=== PATIENT | female | born 1940 | race Caucasian/White ===

== ENCOUNTER 2018-06-01 17:51 | Inpatient (IN) | payer OTHER, MEDICARE ==
[2018-06-01 18:48] LABS: PLATELET COUNT 189 10^3/uL (150-400)
--- NOTE | 2018-06-01 19:18 | EDPHY ---
H & P Stated Complaint: cough Time Seen by Provider: 06/01/18 17:59 HPI/ROS: CHIEF COMPLAINT: Cough, shortness of breath HISTORY OF PRESENT ILLNESS: 77-year-old female with diabetes and COPD presents with cough and shortness of breath. Onset of a dry cough 1 week ago. Associated with gradually increasing shortness of breath and fever. She was seen by her primary care physician yesterday and placed on Levaquin for presumed pneumonia. She has felt worse since yesterday, with increasing shortness of breath and increasing weakness. Associated with lack of appetite. No vomiting or diarrhea. Feels that she can't take care of herself at home. Lives with her grandson, who is gone most of the day. REVIEW OF SYSTEMS: complete 10 point ROS reviewed and is negative except for the noted elements in the HPI - Personal History Current Tetanus/Diphtheria Vaccine: Yes Current Tetanus Diphtheria and Acellular Pertussis (TDAP): Yes Tetanus Vaccine Date: - Medical/Surgical History Hx Asthma: No Hx Chronic Respiratory Disease: No Hx Diabetes: Yes Hx Cardiac Disease: No Hx Renal Disease: No Hx Cirrhosis: No Hx Alcoholism: No Hx HIV/AIDS: No Hx Splenectomy or Spleen Trauma: No Other PMH: HTN, DM2, COPD, fibromyalgia, sleep apnea - Family History Significant Family History: No pertinent family hx - Social History Smoking Status: Former smoker Alcohol Use: Sober Drug Use: None - Physical Exam Exam: General Appearance: Alert, pleasant, nontoxic-appearing Eyes: Pupils equal and round, no conjunctival pallor or injection ENT, Mouth: Mucous membranes moist Neck: Normal inspection Respiratory: Lungs are clear to auscultation, no wheezing Cardiovascular: Regular rate and rhythm Gastrointestinal: Abdomen is soft and nontender Neurological: A&O, nonfocal, normal gait Skin: Warm and dry, no rash Extremities: Nontender, no pedal edema Psychiatric: Mood and affect normal Constitutional: Initial Vital Signs Temperature (C) 37 C 06/01/18 17:58 Heart Rate 100 06/01/18 17:58 Respiratory Rate 20 06/01/18 17:58 Blood Pressure 182/85 H 06/01/18 17:58 O2 Sat (%) 88 L 06/01/18 17:58 O2 Delivery Mode Room Air O2 (L/minute) 2 Allergies/Adverse Reactions: Penicillins Allergy (Severe, Verified 06/01/18 17:56) SINUS ARREST Phenothiazines Allergy (Severe, Verified 06/01/18 17:56) TACCHY, NAUSEA ciprofloxacin Allergy (Verified 06/01/18 17:56) Other-Enter Comments Home Medications: Medication Instructions Recorded FLUoxetine [Prozac 20 MG (RX)] 20 mg PO DAILY 03/28/12 Insulin Aspart [Novolog] 4 - 10 unit SQ AC 03/28/12 Insulin Glargine [Lantus 100 30 units SC BID 03/28/12 UNITS/ML (RX)] Melatonin 10 mg PO HS 03/28/12 Omeprazole 20 mg PO Q2D@21 03/28/12 Simvastatin 40 mg PO DAILY 03/28/12 Vit C/Dl-E AC/Lut/Copper/Znox 1 each PO BID 03/28/12 [Preservision Softgel] Zolpidem Tartrate [Ambien 10 mg] 10 mg PO HS 03/28/12 Albuterol [Proventil Inhaler HFA 1 - 2 puffs IH Q4H PRN 06/01/18 (*)] Amitriptyline HCl [Elavil 50 mg 25 mg PO HS 06/01/18 (*)] Cholecalciferol Vit D3 [Vitamin D3 2,000 units PO MWF 06/01/18 2000 units tab (OTC)] Tafluprost/Pf [Zioptan 0.0015% Eye 1 drop EACHEYE HS 06/01/18 Drops] Timolol 0.5% [TIMOPTIC 0.5% (*)] 1 drop RTEYE DAILY 06/01/18 amLODIPine BESYLATE [Amlodipine 10 mg PO DAILY 06/01/18 Besylate] levOFLOXACIN [Levofloxacin] 750 mg PO DAILY 06/01/18 Medical Decision Making - Diagnostics Imaging Results: Chest x-ray independently reviewed by me reveals no infiltrate. ED Course/Re-evaluation: This patient presents with cough and shortness of breath. Chest x-ray reveals no evidence of pneumonia. However, clinically I suspect that she has pneumonia. She already took a dose of Levaquin this morning. Blood cultures were drawn and a respiratory swab was sent. She does not meet SIRS criteria and initial lactate is normal. The hospitalist service was consulted for admission. Differential Diagnosis: Differential diagnosis includes though it is not limited to pneumonia, pneumothorax, pulmonary embolism, aortic dissection, pericarditis, acute coronary syndrome. - Data Points Laboratory Results: Laboratory Results 06/01/18 18:26 06/01/18 18:26 Microbiology Results: MICROBIOLOGY 06/01/18 18:10 Nasal, Sinus - Swab Respiratory Panel (PCR) - Final No Organism Detected By Pcr Medications Given: Amitriptyline HCl (Elavil) 25 mg PO HS [facility] Stop: 11/28/18 23:27 Last Admin: 06/02/18 20:55 Dose: 25 mg Amlodipine Besylate (Norvasc) 10 mg PO DAILY [facility] Stop: 11/29/18 08:59 Last Admin: 06/02/18 09:17 Dose: 10 mg Atorvastatin Calcium (Lipitor) 20 mg PO DAILY [facility] Stop: 11/29/18 08:59 Last Admin: 06/02/18 09:18 Dose: 20 mg Enoxaparin Sodium (Lovenox) 40 mg SC DAILY [facility] Stop: 11/29/18 08:59 Last Admin: 06/02/18 09:19 Dose: 40 mg Fluoxetine HCl (Prozac) 20 mg PO DAILY [facility] Stop: 11/29/18 08:59 Last Admin: 06/02/18 09:18 Dose: 20 mg Guaifenesin (Mucinex) 1,200 mg PO BID [facility] Stop: 11/29/18 09:44 Last Admin: 06/02/18 20:55 Dose: 1,200 mg Insulin Glargine (Lantus Syringe) 30 units SC BID [facility] Stop: 11/28/18 23:44 Last Admin: 06/02/18 20:57 Dose: 30 units Insulin Human Lispro (Humalog Lispro) 0 unit SC TIDMEAL [facility] PRN Reason: Protocol Stop: 11/29/18 07:59 Last Admin: 06/02/18 17:57 Dose: 2 unit Levofloxacin (Levaquin) 750 mg PO DAILY AT 10AM [facility] PRN Reason: Protocol Stop: 07/02/18 09:59 Last Admin: 06/02/18 09:19 Dose: 750 mg Melatonin (Melatonin) 9 mg PO PRN PRN Reason: Sleep/Insomnia Stop: 11/28/18 22:58 Last Admin: 06/01/18 23:33 Dose: 9 mg Melatonin (Melatonin) 9 mg PO HS [facility] Stop: 11/28/18 23:44 Last Admin: 06/02/18 20:55 Dose: 9 mg Pantoprazole Sodium (Protonix) 40 mg PO Q2D@2100 [facility] Stop: 11/29/18 20:59 Last Admin: 06/02/18 20:55 Dose: 40 mg Prednisone (Prednisone) 20 mg PO DAILY [facility] Stop: 11/28/18 19:44 Last Admin: 06/02/18 09:19 Dose: 20 mg Timolol Maleate (Timoptic 0.5%) 1 drops RTEYE DAILY [facility] Stop: 11/29/18 08:59 Last Admin: 06/02/18 09:46 Dose: Not Given Zolpidem Tartrate (Ambien) 10 mg PO HS [facility] Stop: 11/29/18 20:59 Last Admin: 06/02/18 20:55 Dose: 10 mg Discontinued Medications Sodium Chloride (Ns) 500 mls @ 1,000 mls/hr IV EDNOW ONE PRN Reason: Protocol Stop: 06/01/18 19:50 Last Admin: 06/01/18 20:09 Dose: 500 mls Departure - Departure Disposition: [facility] Acute Condition: Good
[2018-06-01] MEDS ORDERED: NS 500 ML IV ONE (19:21)
[2018-06-01] MEDS ORDERED: ONDANSETRON 4 MG/2 ML VIAL IVP PRN (19:37)
[2018-06-01] MEDS ORDERED: ONDANSETRON DISINTEGRATING 4 MG TAB PO PRN (19:37)
[2018-06-01] MEDS ORDERED: ACETAMINOPHEN 325 MG TAB PO PRN (19:37)
[2018-06-01] MEDS ORDERED: D50W 25 GM/50 ML SYR IVP PRN (19:39)
--- NOTE | 2018-06-01 20:05 | GHP ---
[f rep st] HISTORY AND PHYSICAL DATE OF ADMISSION: 06/01/2018 CHIEF COMPLAINT: Tired and shortness of breath. HISTORY OF PRESENT ILLNESS: This is a 77-year-old female, sent in by Dr. Mars for a possible pneumonia. She had a 3-week vacation in [place] with her sister where she got back about a week ago. Her sister got quite sick with a respiratory illness. Is slowly recovering. She has been sick for about the last week as well with symptoms with a mild sore throat, primarily a dry cough, as well as overall lethargy. She has not had any myalgias. She had possibly a mild fever at home. She was started on Levaquin yesterday without any improvement. PAST MEDICAL/SURGICAL HISTORY: 1. Diabetes mellitus, type 2. 2. Hypertension. 3. Hyperlipidemia. 4. DANIEL on CPAP with 2.25 L of oxygen at home. 5. Fibromyalgia. 6. Diverticulitis requiring sigmoid colectomy. 7. Right-sided tibia/fibula fracture in . 8. Carpal tunnel release. 9.. Cataract surgery. MEDICATIONS: Please see medication reconciliation. ALLERGIES: Penicillin, phenothiazine, and ciprofloxacin. FAMILY HISTORY: Reviewed, noncontributory. SOCIAL HISTORY: She does not drink. She does not smoke. REVIEW OF SYSTEMS: 10-point review of systems is conducted and is negative except per HPI. PHYSICAL EXAM: VITAL SIGNS: Blood pressure 182/85, heart rate 100, respiration rate 20, satting at 88% on room air, temperature 37. GENERAL: The patient is a pleasant obese female who is resting comfortably, appears tired but in no acute distress. HEENT: Shows her to be normocephalic, atraumatic. CARDIOVASCULAR: Shows a regular rate and rhythm. No murmurs, rubs, or gallops. PULMONARY: Shows her to be in no respiratory distress. She is breathing comfortably. She has a left upper lobe wheeze, which cleared with cough. ABDOMEN: Obese but soft, nontender, nondistended. SKIN: Shows no rash. : Shows no Chatterjee. NEUROLOGIC: Shows her to be alert and oriented x3. She is moving all extremities. PSYCHIATRIC: Shows normal mood and affect. LABS: White count is 9.7, hemoglobin is 10.9. Lactate is 1.8. Basic metabolic panel is normal. DATA: 1. Chest x-ray, which I personally viewed and interpreted, shows nothing acute. 2. Discussed with Dr. Riley. IMPRESSION AND PLAN: 1. Respiratory illness: No clear infiltrate on chest x-ray. She is mildly more hypoxic than I believe her baseline. She had been started on Levaquin yesterday. Blood culture are ordered and pending. Respiratory PCR is ordered and pending. We will continue Levaquin for now. We discussed steroids. I will start her on low-dose prednisone at 20 mg daily given her diabetes. We will follow her clinical course. 2. Diabetes mellitus: She is on insulin at home. Continue her home insulin, as well as her short-acting insulin with sliding scale. 3. Hypertension: Continue her Norvasc. 4. Hypothyroid: Synthroid. 5. Obstructive sleep apnea, on continuous positive air pressure at home. 6. Code status: She would like to be do not resuscitate. She is very clear on this. 7. Venous thromboembolism risk. She is high risk given her age and body mass index. I will place her on Lovenox. /[id number]/MODL MTDD
[2018-06-01] MEDS: predniSONE 20 MG TAB PO SCH (20:08)
[2018-06-01] MEDS ORDERED: MELATONIN 3 MG TAB PO PRN (22:59)
[2018-06-01] MEDS ORDERED: AMITRIPTYLINE HCL 25 MG TAB PO PRN (22:59)
[2018-06-01] MEDS ORDERED: ALBUTEROL 60 PUFFS/8 GM MDI IH PRN (23:27)
[2018-06-01] MEDS: AMITRIPTYLINE HCL 25 MG TAB PO SCH (23:34)
[2018-06-02] MEDS: INSULIN GLARGINE 100 UNITS/ML UNIT SC SCH ×3 (00:10→20:57)
[2018-06-02] MEDS: MELATONIN 3 MG TAB PO SCH ×2 (00:48→20:55)
[2018-06-02 05:34] LABS: PLATELET COUNT 173 10^3/uL (150-400)
[2018-06-02] MEDS: INSULIN LISPRO 100 UNIT/ML SC SCH ×3 (08:54→17:57)
[2018-06-02] MEDS: FLUoxetine 20 MG CAP PO SCH (09:18)
[2018-06-02] MEDS: ATORVASTATIN CALCIUM 20 MG TAB PO SCH (09:18)
[2018-06-02] MEDS: ENOXAPARIN 40 MG/0.4 ML SYR SC SCH (09:19)
[2018-06-02] MEDS: predniSONE 20 MG TAB PO SCH (09:19)
--- NOTE | 2018-06-02 09:38 | HOSPPROG ---
Hospitalist Progress Note Assessment/Plan: Patient had recent travel to [place], her sister had become ill w a viral illness. She saw her PCP and there was concern for a upper viral illness. First encounter, chart reviewed. *bronchitis -chest x ray shows no clear infiltrate -started on Levaquin +steroids -added guaifenesin -respiratory panel is negative *hx of smoking, quit 30 years ago -this could be impacting her lungs as she gets older *DM -on insulin -glucoses high due to steroids *obesity w a bmi of 40 *anemia -will follow *plan: Savannah is feeling poorly, ongoing malaise; will evaluate later today to see if she is feeling better. Subjective: Savannah is feeling tired and overall not well. Objective: Vital Signs Temp Pulse Resp BP Pulse Ox 36.7 C 74 16 154/65 H 95 06/02/18 07:27 06/02/18 07:27 06/02/18 07:27 06/02/18 07:27 06/02/18 07:27 Laboratory Results 06/02/18 04:48 06/01/18 06/02/18 06/03/18 05:59 05:59 05:59 Intake Total 800 Balance 800 - Physical Exam Constitutional: appears nourished, obese Eyes: PERRL Ears, Nose, Mouth, Throat: hearing normal Cardiovascular: regular rate and rhythym Respiratory: no respiratory distress, bronchial breath sounds (bases) Skin: warm Musculoskeletal: generalized weakness Neurologic: AAOx3 Psychiatric: interacting appropriately ICD10 Worksheet Patient Problems: Problems Problem Status Onset Bronchitis Acute - ICD10 Problem Qualifiers (1) Bronchitis
[2018-06-02] MEDS: TIMOLOL 0.5% 15 ML OPHT.BTL RTEYE SCH (09:46)
[2018-06-02] MEDS: guaiFENesin 600 MG TAB.ER PO SCH ×2 (10:50→20:55)
--- NOTE | 2018-06-02 14:59 | ASMTCMCOM ---
CM Note CM Note Notes: Reviewed chart, pt admitted for upper respiratory illness. Pt lives at home with her grandson but he is gone most of the day and does not feel like she can take care of herself. DC needs uncertain, CM w/f. DC Plan: TBD Date Signed: 06/02/2018 02:58 PM Electronically Signed By:Cesilia Lo RN
[2018-06-02] MEDS: AMITRIPTYLINE HCL 25 MG TAB PO SCH (20:55)
[2018-06-02] MEDS ORDERED: PANTOPRAZOLE SODIUM 40 MG TAB PO SCH (21:00)
[2018-06-02] MEDS ORDERED: ZOLPIDEM TARTRATE 5 MG TAB PO SCH (21:00)
[2018-06-02] MEDS ORDERED: Tafluprost/Pf [Zioptan 0.0015% Eye Drops] 1 DROP EACHEYE SCH (21:00)
[2018-06-03 07:36] VITALS: BP 166/64
[2018-06-03] MEDS: INSULIN LISPRO 100 UNIT/ML SC SCH ×2 (09:22→12:09)
[2018-06-03] MEDS: INSULIN GLARGINE 100 UNITS/ML UNIT SC SCH (09:37)
[2018-06-03] MEDS: ENOXAPARIN 40 MG/0.4 ML SYR SC SCH (09:39)
[2018-06-03] MEDS: FLUoxetine 20 MG CAP PO SCH (09:39)
[2018-06-03] MEDS: ATORVASTATIN CALCIUM 20 MG TAB PO SCH (09:39)
[2018-06-03] MEDS: guaiFENesin 600 MG TAB.ER PO SCH (09:39)
[2018-06-03] MEDS: predniSONE 20 MG TAB PO SCH (09:39)
[2018-06-03] MEDS: TIMOLOL 0.5% 15 ML OPHT.BTL RTEYE SCH (09:40)
--- NOTE | 2018-06-03 10:39 | PDMN ---
Medical Necessity Medical necessity: Change to IP, as of 06/02/18, per DATA ENTRY COORDINATOR & [facility] General Discharge Criteria; los >2 mn for ongoing management of bronchitis w/malaise & O2 level of 88% on RA w/activity; requiring further monitoring & respiratory supportive care; comorbid advanced age, diabetes
--- NOTE | 2018-06-03 11:12 | ASMTLACE ---
LACE Length of stay for Answers: 2 days current admission Acuity / Level of Answers: Yes Care: Did the patient have an inpatient admission? Comorbidities - select Answers: Chronic pulmonary disease all that apply Diabetes (uncontrolled or controlled) Opioid dependence / Chronic pain Other Notes: HTN # of Emergency department Answers: 1-2 visits in the last 6 months Score: 14 Date Signed: 06/03/2018 11:11 AM Electronically Signed By:Cesilia Lo RN
--- NOTE | 2018-06-03 11:14 | ASMTCMCOM ---
CM Note CM Note Notes: Spoke w/BALL ENDER and RN, pt ok to return home. She is independent in the room, anticipate she will dc home w/support of family when medically stable. CM available for any changes. DC Plan: Independent Date Signed: 06/03/2018 11:14 AM Electronically Signed By:Cesilia Lo RN
--- NOTE | 2018-06-03 11:39 | HOSPPROG ---
Hospitalist Progress Note Assessment/Plan: Patient had recent travel to [place], her sister had become ill w a viral illness. She saw her PCP and there was concern for a upper viral illness. *bronchitis -chest x ray shows no clear infiltrate -started on Levaquin +steroids -added guaifenesin -respiratory panel is negative *hx of smoking, quit 30 years ago -this could be impacting her lungs as she gets older *DM -on insulin -glucoses high due to steroids *obesity w a bmi of 40 *anemia -will follow *plan: DC today w f/u with her PCP Subjective: Savannah is feeling much better today, feeling strong enough to go home. Objective: Vital Signs Temp Pulse Resp BP Pulse Ox 36.9 C 82 18 166/64 H 93 06/03/18 07:36 06/03/18 07:36 06/03/18 07:36 06/03/18 07:36 06/03/18 07:36 06/02/18 06/03/18 06/04/18 05:59 05:59 05:59 Intake Total 1220 Balance 1220 - Physical Exam Constitutional: no apparent distress, appears nourished, not in pain Eyes: PERRL Ears, Nose, Mouth, Throat: hearing normal Cardiovascular: regular rate and rhythym Respiratory: no respiratory distress, clear to auscultation Skin: warm Musculoskeletal: full muscle strength Neurologic: AAOx3 Psychiatric: interacting appropriately ICD10 Worksheet Patient Problems: Problems Problem Status Onset Bronchitis Acute - ICD10 Problem Qualifiers (1) Bronchitis
--- NOTE | 2018-06-03 11:54 | GDS ---
[f rep st] DISCHARGE SUMMARY DISCHARGE DIAGNOSES: 1. Bronchitis. 2. History of smoking. 3. Diabetes. 4. Obesity with a body mass index of 40. 5. Anemia. HISTORY OF PRESENT ILLNESS: Briefly, Savannah Murry is a very nice woman who recently traveled to [facility]. Her sister became ill with a viral illness. She saw her primary care doctor and there was concern she had an upper respiratory infection. She was admitted. It was noted that she did not hav e any organism noted by the respiratory PCR panel. Her blood cultures showed no growth. She is feel ing markedly better after being treated with Levaquin and steroids. She will further follow up with her primary care provider in the outpatient setting. HOSPITAL COURSE PER PROBLEM: 1. Bronchitis, much improved. She is feeling better, especially with initiation of steroids. 2. History of smoking. This could be impacting her lungs as she gets older. 3. Diabetes. Her glucoses are high due to the steroids. She is a prior nurse. She knows how to ad just her insulin to cover this. 4. Obesity. She has a BMI of 40. 5. Anemia. I will have her follow up with her primary care provider. DISCHARGE CONDITION: Stable. Blood pressure is 166/64, heart rate 82, respiratory rate of 18, O2 sa turation on 1 L 92%, temperature 36.9 Celsius. MEDICATIONS AT DISCHARGE: Please see the EMR. DISCHARGE INSTRUCTIONS: 1. Take steroids in the morning with food. 2. Be aware that Levaquin can affect her tendons, especially the Achilles. If she has pain, stop ta maria luz. 3. Take the Levaquin for few more days as instructed. /[id number]/MODL
== END 2018-06-03 13:04 | disposition home or self-care (01) | DRG 202 ==
LOC: INTOOBSV 19:22 → F3E 20:43 → OBSVTOIN 06-02 15:13
PROVIDERS: ADMIT Student in an Organized Health Care Education/Training Program; ATTEND Student in an Organized Health Care Education/Training Program
DX: J20.9 Acute bronchitis, unspecified (principal); Z68.41 Body mass index [BMI] 40.0-44.9, adult; E86.9 Volume depletion, unspecified; E11.9 Type 2 diabetes mellitus without complications; E66.9 Obesity, unspecified; D64.9 Anemia, unspecified; I10 Essential (primary) hypertension; E78.5 Hyperlipidemia, unspecified; G47.33 Obstructive sleep apnea (adult) (pediatric); M79.7 Fibromyalgia; Z66 Do not resuscitate; Z88.0 Allergy status to penicillin; Z79.4 Long term (current) use of insulin; Z87.891 Personal history of nicotine dependence
CPT/HCPCS: G0378; J1650; J1815; J7512